=== PATIENT | male | born 1975 | race Caucasian/White ===

== ENCOUNTER → 2017-02-11 | Outpatient (CLI) | payer BC | LOC: CIMAGING 10:01 | PROVIDERS: ATTEND Nurse Practitioner | DX: K40.90 Unilateral inguinal hernia, without obstruction or gangrene, not specified as recurrent (principal) | CPT/HCPCS: 76882-PO ==

== ENCOUNTER 2017-04-13 06:37 | Day surgery (SDC) | payer BC ==
--- NOTE | 2017-04-13 07:05 | GHP ---
[f rep st] HISTORY AND PHYSICAL DATE OF ADMISSION: 04/13/2017 DATE OF SURGERY: 04/13/2017. CHIEF COMPLAINT: Left inguinal hernia. HISTORY OF PRESENT ILLNESS: This is an otherwise healthy 41-year-old male, referred to the clinic w ith a new bulge in his left groin. He said he started lifting a heavy weightlifting routine approxi mately 2 years ago and at the end of it began to notice a small bump on the left side. Four to five months ago, it has become more painful and noticed that it usually reduced, but now it does not any more. He denies having any skin changes. Denies having any changes in bowel habits, fevers or chi lls, and is here mainly just because of the progressive pain in the left groin. He had an ultrasoun d on the 11 of February which confirmed a left inguinal hernia. PAST MEDICAL HISTORY: Hyperlipidemia. PAST SURGICAL HISTORY: Tonsillectomy and vasectomy. CURRENT MEDICATIONS: Aspirin, ginkgo, and other multivitamins. ALLERGIES: None. FAMILY HISTORY: Noncontributory. SOCIAL HISTORY: Social drinker. Denies illicit drug use. REVIEW OF SYSTEMS: A full 10-point review was performed and unless stated above, is otherwise negat va. PHYSICAL EXAM: GENERAL: Alert, oriented, in no acute distress. HEENT: Normocephalic. Mucous mem branes moist. CARDIAC: Heart sounds normal. LUNGS: Clear to auscultation bilaterally. ABDOMEN: Soft, nondistended, nontender. Small nonreducible mass in the left groin consistent with ultrasoun d findings. ASSESSMENT: 41-year-old male with new-onset unilateral left inguinal hernia. PLAN: Plan to take the patient to the operating room for laparoscopic inguinal hernia repair. Risk s, benefits, and alternatives were discussed. /[id number]/MODL
[2017-04-13] MEDS ORDERED: BUPIVACAINE/EPI 0.25% 30 ML SDV ONE (07:27)
[2017-04-13] MEDS ORDERED: ceFAZolin 2 GM/DEXTROSE 100 ML IV ONE (08:00)
[2017-04-13] MEDS ORDERED: fentaNYL 100 MCG/2 ML INJ ONE ×2 (08:10→09:10)
[2017-04-13] MEDS ORDERED: PROPOFOL 200 MG/20 ML VIAL ONE (08:11)
[2017-04-13] MEDS ORDERED: MIDAZOLAM 2 MG/2 ML VIAL ONE (08:39)
[2017-04-13] MEDS ORDERED: SCOPOLAMINE HYDROBROMIDE 1.5 MG PATCH TD ONE (08:40)
--- NOTE | 2017-04-13 12:02 | GOP ---
[f rep st] OPERATIVE REPORT DATE OF OPERATION: 04/13/2017 SURGEON: Harry Watson MD HARDBOARD GRINDER: Edis Goodman MD. ANESTHESIA: General endotracheal per Dr. Jordan. PREOPERATIVE DIAGNOSIS: 1. Left inguinal hernia. 2. Multiple abdominal and chest wall lipomas. POSTOPERATIVE DIAGNOSIS: 1. Left inguinal hernia. 2. Multiple abdominal and chest wall lipomas. PROCEDURE PERFORMED: 1. Laparoscopic left inguinal hernia repair with mesh. 2. Excision of multiple cutaneous lipomas. FINDINGS: Fairly large direct left inguinal hernia sac completely reduced. No indirect sac identified. Hernia repaired successfully with Parietex specific mesh. Right side was evaluated and noted to have no indirect or direct hernias. SPECIMENS: Multiple lipomas sent to pathology. ESTIMATED BLOOD LOSS: For both procedures 10 cc. DESCRIPTION OF PROCEDURE: The patient was greeted in the preoperative suite. Once again, risks, benefits, and alternatives were discussed. The consent was signed. He was then brought back to the operative suite, placed on the OR table in a supine position. After all anesthesia machines, including SCDs, were on and functioning, a [employer] time-out was performed. General endotracheal anesthesia was then induced without incident. Antibiotics were given on-call to the operating room. The patient's abdomen was then widely prepped and draped in a typical sterile fashion. I entered the abdomen via an infraumbilical curvilinear incision. I carried this down to the subcutaneous tissue where the anterior fascial sheath was identified. This was divided sharply. The rectus sheath was then bluntly dissected between it, and the posterior space was entered. Through this I bluntly dissected using the blunt balloon dissector under direct visualization, dissecting out the preperitoneal space. Once this was done, I successfully placed my trocar and oriented myself. I placed 2 additional 5 mm trocars, 1 in the suprapubic, 1 midway between my 2 other port sites under direct visualization. I turned my attention first laterally, creating a pocket for the mesh, I brought this over medially, identified the pubic tubercle and cleaned off Gentry's ligament. Once this was successfully cleaned, I identified the cord structures and skeletonized them. Just medial to these and medial to the epigastric vessels I encountered a fairly large hernia sac in the direct space. This was bluntly dissected and returned to the abdominal cavity. I identified no other hernias in the femoral or indirect space. After this was done, I brought in my Parietex site specific mesh and tacked it with significant overlap superiorly and to the pubic tubercle, medially. 1 tack was placed laterally to hold the mesh during fixation. Once this was done, and I felt that the mesh was appropriately placed, I turned my attention toward the right inguinal canal, I identified no direct or indirect inguinal sacs at this site. I then desufflated under direct visualization and noted that the mesh sat appropriately. The port sites were then removed. The umbilical fascial site was closed with an interrupted 0 Vicryl stitch in a [id number] fashion noting excellent fascial reapproximation, and the skin sites were closed with running 4-0 Monocryl. I then turned my attention toward the patient's multiple lipomas. He had 1 in his left chest, 1 left abdomen and 2 in his right abdomen. In the same fashion I made an incision, carried this down through the subcutaneous tissue, grasped all the underlying fatty tumors and removed them. Hemostasis was achieved in all cavities with electrocautery and gentle pressure , and the skin was closed with running 4-0 Monocryl over which Dermabond was placed in all incisions. The lipomas were sent to pathology for inspection. The patient was then extubated in the operative suite and taken to the PACU in satisfactory condition. DRAINS: None. COUNTS: All counts were reported as correct x2. /[id number]/MODL MTDD
== END 2017-04-13 12:25 | disposition home or self-care (01) ==
LOC: FSGY 06:37
PROVIDERS: ATTEND Surgery
PROC: 0JB80ZZ Excision of Abdomen Subcutaneous Tissue and Fascia, Open Approach (ICD-10-PCS; principal; 2017-04-13 08:30)
PROC: 0WUF4JZ Supplement Abdominal Wall with Synthetic Substitute, Percutaneous Endoscopic Approach (ICD-10-PCS; principal; 2017-04-13 08:30)
PROC: 0JB60ZZ Excision of Chest Subcutaneous Tissue and Fascia, Open Approach (ICD-10-PCS; principal; 2017-04-13 08:30)
DX: K40.90 Unilateral inguinal hernia, without obstruction or gangrene, not specified as recurrent (principal); D17.1 Benign lipomatous neoplasm of skin and subcutaneous tissue of trunk; E78.5 Hyperlipidemia, unspecified
CPT/HCPCS: 21555; 22902; 49654; C1727; C1781; J0690; J2250; J2704; J3010